=== PATIENT | male | born 2005 | race Hispanic/Latino ===

== ENCOUNTER 2023-01-06 02:56 | Inpatient (IN) | payer OTHER, SELFPAY ==
[2023-01-06] MEDS ORDERED: Boostrix 0.5 ML (Tdap) VIAL (>/=7 yrs of age) ONE (03:06)
[2023-01-06 03:13] LABS: #Lymphocytes 1.8 thou/uL (1.20-3.40); #Monocytes 0.4 thou/uL (0.11-0.59); %Basophils 0.4 % (0.0-1.0); %Eosinophils 0.6 % (0.0-10.0); %Monocytes 5.9 % (0.0-4.0); Hemoglobin 13.1 g/dL (14.0-18.0); Mean Corpuscular Hemoglobin 32.5 pg (25.0-35.0); Mean Corpuscular Volume 95.5 fl (78.0-98.0); Mean Platelet Volume 7.7 fL (7.4-10.4); Platelet Count 277 10x3/uL (130-400); RBC Distribution Width 11.7 % (11.5-14.5); Red Blood Cell (RBC) Count 4.02 mill/uL (4.00-5.20); White Blood Cell (WBC) Count 6.3 10x3/uL (4.8-10.8)
[2023-01-06 03:25] LABS: INR-International Normal Ratio 1.1; Prothrombin Time 14.4 sec (12.0-14.7)
[2023-01-06] MEDS ORDERED: Lidocaine 1% w/Epinephrine 1:100K 20 ML VIAL ONE ×2 (03:25→04:04)
[2023-01-06 03:34] LABS: PTT 22.3 sec (22.9-36.1)
[2023-01-06 03:36] LABS: ALT (SGPT) 19 U/L (8-55); AST (SGOT) 27 U/L (10-45); Albumin 3.8 g/dL (3.5-5.0); Alcohol 267 mg/dL (Less than 10); Alkaline Phosphatase 70 U/L (50-130); Anion Gap 14 mmol/L (10-20); BUN (Urea Nitrogen) 8 mg/dL (8.4-21.0); Bilirubin, Total Less than 0.2 mg/dL (0.2-1.2); Calc. Creatinine Clearance 0 mL/min (70-130); Calcium 8.1 mg/dL (7.8-10.44); Carbon Dioxide 18 mmol/L (22-29); Chloride 113 mmol/L (98-107); Estimated GFR 135; Globulin 2.4 g/dL (2.4-3.5); Glucose 141 mg/dL (70-105); Lipase Less than 4 U/L (8-78); Potassium 4.2 mmol/L (3.5-5.1); Protein, Total 6.2 g/dL (6.0-8.3); Sodium 141 mmol/L (136-145)
[2023-01-06] MEDS ORDERED: Ondansetron PF 4 MG/2 ML Vial ONE (04:09)
[2023-01-06] MEDS ORDERED: Ipratropium/Albuterol 3 ML NEB NEB PRN (05:09)
[2023-01-06] MEDS ORDERED: Morphine 2 MG/ML VIAL SLOW IVP PRN (05:09)
[2023-01-06] MEDS ORDERED: hydrALAZINE 20 MG/ML VIAL SLOW IVP PRN (05:09)
[2023-01-06] MEDS ORDERED: traMADol HCl 50 MG TAB PO PRN (05:13)
[2023-01-06] MEDS ORDERED: Sodium Chloride 0.9% 1,000 ML IV SCH (05:15)
[2023-01-06 05:57] LABS: #Lymphocytes 0.8 thou/uL (1.20-3.40); #Monocytes 0.5 thou/uL (0.11-0.59); #Neutrophils 14.5 thou/uL (1.40-6.50); %Basophils 0.1 % (0.0-1.0); %Eosinophils 0.2 % (0.0-10.0); %Lymphocytes 5.3 % (28.0-48.0); %Monocytes 3.3 % (0.0-4.0); %Neutrophils 91.2 % (31.0-61.0); Hemoglobin 12.4 g/dL (14.0-18.0); Mean Corpuscular HGB CONC 32.7 g/dL (32.0-36.0); Mean Corpuscular Hemoglobin 31.3 pg (25.0-35.0); Mean Corpuscular Volume 95.6 fl (78.0-98.0); Mean Platelet Volume 7.8 fL (7.4-10.4); Platelet Count 279 10x3/uL (130-400); RBC Distribution Width 11.8 % (11.5-14.5); Red Blood Cell (RBC) Count 3.95 mill/uL (4.00-5.20); White Blood Cell (WBC) Count 15.9 10x3/uL (4.8-10.8)
[2023-01-06 06:11] LABS: Lactic Acid 2.2 mmol/L (0.5-2.2)
[2023-01-06] MEDS: Acetaminophen 325 MG TAB PO SCH ×4 (06:24→23:03)
[2023-01-06] MEDS: traMADol HCl 50 MG TAB PO SCH ×4 (06:25→23:02)
[2023-01-06 06:28] LABS: Anion Gap 13 mmol/L (10-20); BUN (Urea Nitrogen) 8 mg/dL (8.4-21.0); Calc. Creatinine Clearance 0 mL/min (70-130); Calcium 8.4 mg/dL (7.8-10.44); Carbon Dioxide 21 mmol/L (22-29); Chloride 111 mmol/L (98-107); Estimated GFR 137; Glucose 147 mg/dL (70-105); Phosphorus 2.5 mg/dL (2.3-4.7); Potassium 4.4 mmol/L (3.5-5.1); Sodium 141 mmol/L (136-145)
[2023-01-06 06:40] VITALS: BMI 22.2
[2023-01-06 07:09] LABS: ALT (SGPT) 22 U/L (8-55); AST (SGOT) 29 U/L (10-45); Albumin 4.1 g/dL (3.5-5.0); Alkaline Phosphatase 66 U/L (50-130); Bilirubin, Direct 0.1 mg/dL (0.1-0.3); Bilirubin, Total 0.2 mg/dL (0.2-1.2); Protein, Total 6.1 g/dL (6.0-8.3)
[2023-01-06] MEDS ORDERED: Iopamidol-370 76% 500 ML MDV (1 ML CHARGE) ONE (09:23)
[2023-01-06] MEDS: Famotidine 20 MG TAB PO SCH ×2 (09:50→20:36)
[2023-01-06] MEDS: Polyethylene Glycol 3350 17 GM Packet PO SCH (09:51)
[2023-01-06] MEDS: Senokot S 8.6-50 MG TAB PO SCH ×2 (09:52→20:36)
[2023-01-06 10:13] LABS: Amphetamine Not Detected (NotDetected); Barbiturates Screen Not Detected (NotDetected); Benzodiazepine Screen Not Detected (NotDetected); Cocaine Metabolite Screen Not Detected (NotDetected); Methadone Not Detected (NotDetected); Methamphetamine Not Detected (NotDetected); Opiate Screen Not Detected (NotDetected); Oxycodone Screen Not Detected (NotDetected); Phencyclidine (PCP) Not Detected (NotDetected); THC/Cannabinoid Screen Detected (NotDetected); Tricyclic Screen Not Detected (NotDetected)
[2023-01-06] MEDS: Ondansetron PF 4 MG/2 ML Vial IVP PRN (10:43)
[2023-01-06] MEDS: Cephalexin 250 MG CAP PO SCH ×3 (12:40→23:02)
[2023-01-06] MEDS ORDERED: FLU VACC QS2022-23(6MO UP)/PF 60 MCG/0.5 ML SYRINGE IM ONE (14:00)
[2023-01-06] MEDS ORDERED: Lactated Ringer's 1,000 ML IV SCH (14:45)
[2023-01-06 15:58] LABS: Bacteria/HPF None Seen HPF (None Seen); Bilirubin Negative (Negative); Blood, Urine Trace (Negative); CAUTI Indications for Culture Pelvic or flank pain; Clarity Clear (Clear); Glucose, Urine (Dipstick) Normal (Negative); Ketone, Urine Negative (Negative); Leukocyte Negative Leu/uL (Negative); Nitrite Negative (Negative); Protein, Urine (Dipstick) Negative (Neg-Trace); RBC/HPF 0-3 HPF (0-3); Specific Gravity, Urine 1.045 (1.002-1.036); Squamous Epithelial None Seen HPF (0-3); Urobilinogen Normal mg/dL (Less than 2); WBC/HPF 0-3 HPF (0-3)
[2023-01-06 15:59] LABS: Urine Culture Reflex No No
[2023-01-06] MEDS ORDERED: Ketorolac Tromethamine 30 MG/ML VIAL ONE (16:44)
[2023-01-06] MEDS ORDERED: Ketorolac Tromethamine 30 MG/ML VIAL IVP SCH (16:45)
[2023-01-06 17:20] LABS: Hemoglobin 11.9 g/dL (14.0-18.0)
[2023-01-07] MEDS: Cephalexin 250 MG CAP PO SCH (05:08)
[2023-01-07] MEDS: traMADol HCl 50 MG TAB PO SCH ×2 (05:08→11:06)
[2023-01-07] MEDS: Acetaminophen 325 MG TAB PO SCH ×3 (05:10→15:20)
[2023-01-07 06:07] LABS: #Eosinphils 0.1 thou/uL (0.0-0.7); #Lymphocytes 2.3 thou/uL (1.20-3.40); #Monocytes 0.8 thou/uL (0.11-0.59); #Neutrophils 4.6 thou/uL (1.40-6.50); %Basophils 0.4 % (0.0-1.0); %Eosinophils 0.9 % (0.0-10.0); %Lymphocytes 29.1 % (28.0-48.0); %Monocytes 10.2 % (0.0-4.0); %Neutrophils 59.4 % (31.0-61.0); Hemoglobin 10.9 g/dL (14.0-18.0); Mean Corpuscular HGB CONC 34.9 g/dL (32.0-36.0); Mean Corpuscular Hemoglobin 33.3 pg (25.0-35.0); Mean Corpuscular Volume 95.5 fl (78.0-98.0); Mean Platelet Volume 8.2 fL (7.4-10.4); Platelet Count 208 10x3/uL (130-400); RBC Distribution Width 11.7 % (11.5-14.5); Red Blood Cell (RBC) Count 3.28 mill/uL (4.00-5.20); White Blood Cell (WBC) Count 7.8 10x3/uL (4.8-10.8)
[2023-01-07 06:35] LABS: Anion Gap 10 mmol/L (10-20); BUN (Urea Nitrogen) 15 mg/dL (8.4-21.0); Calc. Creatinine Clearance 129 mL/min (70-130); Calcium 9.1 mg/dL (7.8-10.44); Carbon Dioxide 28 mmol/L (22-29); Chloride 102 mmol/L (98-107); Estimated GFR 134; Glucose 95 mg/dL (70-105); Phosphorus 2.7 mg/dL (2.3-4.7); Potassium 3.8 mmol/L (3.5-5.1); Sodium 136 mmol/L (136-145)
[2023-01-07] MEDS: Polyethylene Glycol 3350 17 GM Packet PO SCH (08:34)
[2023-01-07] MEDS: Senokot S 8.6-50 MG TAB PO SCH (08:34)
[2023-01-07] MEDS: Famotidine 20 MG TAB PO SCH (08:34)
[2023-01-07] MEDS: Ondansetron PF 4 MG/2 ML Vial IVP PRN (09:14)
[2023-01-07 13:20] VITALS: BP 131/80; TEMP 97.1
== END 2023-01-07 16:25 | disposition home or self-care (01) | DRG 965 ==
LOC: ERS 02:56 → CCU 06:11 → SURG A 16:59
PROVIDERS: ADMIT Surgery; ATTEND Surgery
DX: S36.116A Major laceration of liver, initial encounter (principal); S37.051A Moderate laceration of right kidney, initial encounter; Z23 Encounter for immunization; X99.9XXA Assault by unspecified sharp object, initial encounter; F10.129 Alcohol abuse with intoxication, unspecified; S41.011A Laceration without foreign body of right shoulder, initial encounter; S21.211A Laceration without foreign body of right back wall of thorax without penetration into thoracic cavity, initial encounter; Y90.8 Blood alcohol level of 240 mg/100 ml or more
CPT/HCPCS: 36415; 71045; 71260; 74177; 80048; 80053; 80306; 80307; 81001; 83605; 83690; 83735; 84100; 85025; 85610; 85730; 86850; 86900; 86901; 90471; 90715; 93005; 96374; G0390; J1885; J2405; J7050; Q9967